=== PATIENT | female | born 1935 | race Caucasian/White ===

== ENCOUNTER 2019-10-05 15:32 | Outpatient (CLI) | payer MEDICARE, SELFPAY ==
--- NOTE | 2019-10-05 15:51 | XR_ITS ---
WS: [id number] LEFT WRIST: 3 VIEW(S) TECHNIQUE: PA, oblique and lateral. HISTORY: WRIST PAIN, LEFT, CELLULITIS LT WRIST COMPARISON: None available. No acute fracture or dislocation. Diffuse osteopenia. No joint space abnormality. No significant soft tissue edema. Vascular calcifications. XR/XR wrist LT min 3V* [id number] IMPRESSION: 1. Osteopenia, no fracture. 2. Peripheral arterial calcifications.
== END 2019-10-05 15:33 | disposition home or self-care (01) ==
LOC: RADWPI 15:36
PROVIDERS: Family Provider Internal Medicine; PCP Internal Medicine; Visit Provider Nurse Practitioner Family
DX: L03.114 Cellulitis of left upper limb (principal); M85.822 Other specified disorders of bone density and structure, left upper arm; I73.89 Other specified peripheral vascular diseases; M25.532 Pain in left wrist
CPT/HCPCS: 73110

== ENCOUNTER → 2020-03-14 09:23 | Outpatient (BNVA) | payer MEDICARE, SELFPAY | PROVIDERS: Family Provider Internal Medicine; PCP Internal Medicine; Referring Provider Internal Medicine; Visit Provider Dermatology | DX: L85.3 Xerosis cutis (principal); L30.8 Other specified dermatitis; D18.01 Hemangioma of skin and subcutaneous tissue; L82.1 Other seborrheic keratosis; B35.1 Tinea unguium; I87.2 Venous insufficiency (chronic) (peripheral) | CPT/HCPCS: 99203; 99204 ==

== ENCOUNTER 2020-03-22 13:20 | Outpatient (CLI) | payer MEDICARE, SELFPAY ==
--- NOTE | 2020-03-22 | XR_ITS ---
WS: [id number] RIGHT HIP HISTORY: RIGHT HIP PAIN COMPARISON: 10/03/2016 Right hip: No acute fracture or dislocation. Long intramedullary dianne with 2 femoral neck screws. No l ucency around the hardware or change in position. There may be slight retraction of the femoral neck screws as compared to the prior study from 2017 but I also suspect this could be positional. No fract ures. Extensive calcification in the femoral artery. XR/XR hip RT 2-3V wo/w pel* [id number] IMPRESSION: 1. No acute fracture. 2. Status post intramedullary rodding and screw fixation with no convincing in terval change.
== END 2020-03-22 13:21 | disposition home or self-care (01) ==
LOC: RADWPI 13:25
PROVIDERS: Family Provider Internal Medicine; PCP Internal Medicine; Visit Provider Internal Medicine
DX: M25.551 Pain in right hip (principal)
CPT/HCPCS: 73502

== ENCOUNTER 2020-06-13 23:46 | Emergency (ER) | payer MEDICARE, SELFPAY ==
[2020-06-13 23:50] VITALS: BP 201/84; PULSE 87; RESP 20; TEMP 36.6; O2SAT 96; BMI 30.5
--- NOTE | 2020-06-13 23:52 | XR_ITS ---
WS: [id number] Portable AP upright chest, 06/14/2020 Clinical Data: Chest pain Comparison: Portable chest, 07/28/2016. Findings: No nodules, masses or effusions are seen. The heart is slightly enlarged. The pulmonary vas cularity is not increased. No pneumonia or pneumothorax is seen. The aortic arch and descending aorta show calcification. There are monitor leads on the lower chest wall. XR/XR chest 1V portable [id number] Impression: Cardiomegaly and atherosclerosis.
--- NOTE | 2020-06-13 23:54 | ECG_ITS ---
[facility] Test Date: 2020-06-14 Pat Name: Mendy Gao Department: Room: Gender: Female Channel Lip Wetter: : 1935 Requested By: Carmel Alejandra Order Number: [id number] Riya MD: Osman Fernandez M.D. Measurements Intervals [place] Rate: 63 P: 79 FL: 236 QRS: -30 QRSD: 175 T: 110 QT: 464 QTc: 476 Interpretive Statements SINUS RHYTHM WITH FIRST DEGREE AV BLOCK LEFT BUNDLE BRANCH BLOCK [120+ ms QRS DURATION, 80+ ms Q/S IN V1/V2, 85+ ms R IN I/aVL/V5/V6] Compared to ECG 06/09/2016 10:12:09 First degree AV block now present Electronically Signed On 06-14-2020 20:12:23 CORE COMPOSER FEEDER by Osman Fernandez M.D. [email or web address]/store/[id number]
[2020-06-14] VITALS (11 sets, daily range): BP systolic 136–219; BP diastolic 43–89; PULSE 58–77; RESP 12–27; O2SAT 95–100
--- NOTE | 2020-06-14 00:09 | W.ED.GENADLT ---
HPI - General Adult General: Chief complaint: General Medical Stated complaint: HIGH BLOOD SUGAR Time Seen by Provider: 06/13/20 23:47 Source: patient and EMS Mode of arrival: EMS Limitations: no limitations History of Present Illness: HPI narrative: Ms. Gao is an 85-year-old female who comes in complaining of high blood sugar. Patient states her blood sugars been high for the past 2 to 3 days but today the last time she checked it was reading high so total amount was undetectable. Patient states she had urinary frequency and a dry mouth. She feels as though she is dehydrated from this. Patient states she is had a little bit of dyspepsia but no nausea or vomiting. She denies chest pain or shortness of breath. She came in tonight because the medicines they were giving her at the [place] [facility] were not able to get control of her blood sugar. She denies any fever, chills or respiratory complaints. She denies any lower abdominal pain, flank pain, headache, neck pain or other complaint. Associated symptoms: Deny chest pain, dyspnea, headache(s), nausea, rash, palpitations, syncope or vomiting Review of Systems Const: Denies: fever(s) Eyes: Denies: change in vision or blurry vision ENMT: Denies: throat pain, hoarseness or swelling of lips/tongue Card: Denies: chest pain, palpitations, syncope, pre-syncope or dyspnea on exertion Resp: Denies: dyspnea, productive cough, non-productive cough, wheezing, change in phlegm color or hemoptysis GI: Reports: abdominal pain; Denies: nausea, vomiting or diarrhea : Reports: urinary frequency; Denies: flank pain, dysuria or urinary urgency Musc: Denies: neck pain, back pain or extremity pain Skin/Breast: Denies: rash or pruritus Neuro: Denies: headache(s), numbness in extremities, weakness in extremities or dizziness Donald/Lymph: Denies: easy bruising, easy bleeding, petechiae or purpura All/Imm: Denies: urticaria or throat swelling PFSH ED PFSH: Medical History Asteototic dermatitis Cognitive disorder Diabetes mellitus type II, controlled Diverticulosis History of colon polyps Onychomycosis of toenail Peripheral sensory neuropathy due to type 2 diabetes mellitus Psychosocial impairment PVD (peripheral vascular disease) Trigeminal neuralgia Xerosis of skin Surgical History H/O breast surgery H/O hemorrhoidectomy H/O ovarian cystectomy H/O total thyroidectomy with left radical neck dissection H/O: hysterectomy History of back surgery History of bladder surgery Status post right foot surgery Family History Sister Lung disease Hypertension Diabetes Mother Diabetes Denies family history of CAD (coronary artery disease) Clotting disorder Dementia Hyperlipidemia Psychiatric illness Chronic kidney disease (CKD) Suicide Anesthesia complication Bleeding disorder Family history of premature coronary artery disease Cancer Stroke Social History Smoking and tobacco status: never smoked Alcohol intake: never Physical Exam Const: COMMON NORMALS: no acute distress, patient oriented x3, no limitations and alert GENERAL APPEARANCE: cooperative HENMT: COMMON NORMALS: normocephalic, atraumatic, external ears normal, EAC's normal and Normal external nose present HEAD & SCALP: normal to inspection, normocephalic and atraumatic FACE & SINUS: normal facial exam and face symmetric NOSE: Normal external nose present and Normal nares present EXTERNAL EAR: Yes external ears normal EXTERNAL AUDITORY CANAL: EAC's normal MOUTH: Normal oral and palatal mucosa present, lip normal and tongue normal Eye: COMMON NORMALS: Equal, round and reactive pupils present and conjunctivae normal GENERAL EYE: appearance normal, both eyes and all related structures ALIGNMENT: Yes alignment normal PERIORBITAL: periorbital findings normal EYELID: eyelids normal CONJUNCTIVA: Yes conjunctivae normal SCLERA: sclerae normal PUPIL: Yes Equal, round and reactive pupils present Neck/C-Spine: COMMON NORMALS: full ROM, no lymphadenopathy, supple, no meningeal signs and no JVD GENERAL: Yes normal visual inspection and Yes trachea midline Chest: COMMONS NORMALS: normal inspection of the chest and normal palpation of entire chest wall Resp: COMMON NORMALS: normal respiratory effort, No retractions, No use of accessory muscles and clear to auscultation bilaterally EFFORT & INSPECTION: Yes able to speak in complete sentences and Yes symmetric chest movement AUSCULTATION: clear to auscultation bilaterally, no crackles, no rales, no rhonchi and no wheezes Cardio: COMMON NORMALS: no JVD, regular rate, regular rhythm, S1 normal heart sound present and S2 normal heart sound present RATE: regular rate RHYTHM: regular rhythm HEART SOUNDS: S1 normal heart sound present, S2 normal heart sound present, no click, no gallops, no murmurs and no rubs GI: COMMON NORMALS: Soft to palpation and No hepatosplenomegaly present PALPATION: Yes Soft to palpation, No Tenderness to palpation present (GI), No Guarding due to palpation present (GI), No Rigid due to palpation, Yes No hepatosplenomegaly present, No Hernia present, No Palpable mass present and No Pulsatile mass present : COMMON NORMALS: Yes no CVA tenderness BLADDER/KIDNEY EXAM: Yes no CVA tenderness EXTERNAL FEMALE EXAM: No Hernia present Back/Pelvis: COMMON NORMALS: no CVA tenderness, thoracic and lumbar spine normal to inspection, no thoracic nor lumbar tenderness and thoraco-lumbar ROM normal Extremity: COMMON NORMALS: normal to inspection, full ROM, capillary refill normal, no joint enlargement, no clubbing, cyanosis or edema and no calf tenderness Neuro: COMMON NORMALS: patient oriented x3, CN's II-XII intact bilaterally, moves all extremities, no focal motor deficits and no sensory deficits noted SENSORIUM/ORIENTATION: Yes alert MENINGEAL SIGNS: Yes no meningeal signs SPEECH: speech normal Psych: COMMON NORMALS: mental status grossly normal, Normal thought process present, cooperative, normal affect, speech normal and activity/motor behavior normal SPEECH: Yes normal speech THOUGHT PROCESS: Normal thought process present Skin: COMMON NORMALS: no rashes or lesions noted, turgor normal, no jaundice, no petechiae and no mottling GENERAL SKIN EXAM: no rashes or lesions noted and turgor normal Course Vital Signs: Vital signs: Vital Signs Temperature 97.9 F 06/13/20 23:50 Pulse Rate 70 06/14/20 03:30 Respiratory Rate 23 H 06/14/20 03:30 Blood Pressure 143/76 06/14/20 03:30 Pulse Oximetry 96 06/14/20 03:30 MDM - General Adult MDM Narrative: Medical decision making narrative: 0315 - Mrs. Gao is a nice 85-year-old female who comes in with a 2 to 3-day history of polyuria, polydipsia and high blood sugar. Patient appears to be in a mild to moderate case of DKA. With 2 L normal saline here her blood sugar has dropped to the 500 range but we will go ahead and start an insulin drip to help close her anion gap. We have no ICU or floor beds available here so the case was reviewed with Dr. Lashay Dougherty at [facility] and she will accept the patient in transfer. Repeat exam does not reveal any signs of peritonitis. Patient has thrown up here but is feeling better after IV Zofran. Her EKG shows left bundle branch block that is stable. Patient does appear dehydrated but is overall feeling improved at this time. Lab Data: Attestation: I reviewed the patient's lab results. Labs: Lab Results 06/13/20 06/13/20 06/13/20 Range/Units 01:25 23:30 23:30 WBC 7.6 (4.0-10.0) 10^3/ uL RBC 3.89 L (4.1-5.3) 10^6/u L Hgb 10.9 L (11.5-15.3) g/dL Hct 36.6 L (37.0-47.0) % MCV 94.1 (81-99) fL MCH 28.0 (28.0-34.0) pg MCHC 29.8 L (30.0-36.0) g/dL RDW 13.7 (12.1-15.1) % Plt Count 249 (130-400) 10^3/c mm MPV 11.0 H (7.4-10.4) fL Neut % (Auto) 81.0 % Lymph % (Auto) 12.7 % Houghton % (Auto) 5.4 % Eos % (Auto) 0.1 % Baso % (Auto) 0.5 % Neut # (Auto) 6.19 (1.8-7.7) 10^3/u L Lymph # (Auto) 1.0 (0.8-4.8) 10^3/u L Houghton # (Auto) 0.4 (0.2-0.9) 10^3/u L Eos # (Auto) 0.0 (0.0-0.8) 10^3/u L Baso # (Auto) 0.0 (0.0-0.1) 10^3/u L Nucleated RBC % (a uto) 0 % Nucleated RBCs # 0.0 /100WBC Specimen Type Arterial Sample Site Radial, right ABG pH 7.22 L (7.35-7.45) ABG pCO2 37.8 (35-45) mmHg ABG pO2 83.7 (80.0-100.0) mmH g ABG HCO3 15.6 L (22-26) mmol/L ABG Base Excess -11.3 L (-2.0-2.0) mmol/ L Jm Test Pos Hematocrit 32.9 L (37-47) % Farrowing Worker ID ellpe Sodium 129 L (136-145) mmol/L Potassium 5.5 H (3.5-5.1) mmol/L Chloride 89 L (98-107) mmol/L Carbon Dioxide 19 L (22-29) mmol/L Anion Gap 26.5 H (5-19) BUN 26 H (8-23) mg/dL Creatinine 1.3 H (0.5-0.9) mg/dL GFR Calculation Not Reportable Glucose 833 H* (65-115) mg/dL POC Glucose (70-110) mg/dL Calculated Osmolal ity 314 H (285-295) mOsm/k g Calcium 9.7 (8.5-10.5) mg/dL Magnesium 2.0 (1.7-2.3) mg/dL Total Bilirubin 0.5 (0.15-1.2) mg/dL AST 67 H (0-32) U/L ALT 47 H (0-33) U/L Alkaline Phosphata se 168 H (35-105) IU/L Troponin T Baselin e (0-10) ng/L Total Protein 6.6 (6.6-8.7) g/dL Albumin 4.6 (3.5-5.2) g/dL Globulin 2.0 (1.3-4.6) g/dL Lipase 17 (13-60) U/L Urine Color (Yellow) Urine Appearance (CLEAR) Urine pH (5-7) Ur Specific Gravit y (1.005-1.030) Urine Protein (Negative) Urine Glucose (UA) (Normal) Urine Ketones (Negative) Urine Blood (Negative) Urine Nitrate (Negative) Urine Bilirubin (Negative) Urine Urobilinogen (Negative) mg/dL Ur Leukocyte Roopa ase (Negative) Serum Ketones Positive H (Negative) SARS-CoV-2 Ag (Rap id) (Negative) 11/02/20 11/03/20 11/03/20 Range/Units 23:30 00:05 02:53 WBC (4.0-10.0) 10^3/ uL RBC (4.1-5.3) 10^6/u L Hgb (11.5-15.3) g/dL Hct (37.0-47.0) % MCV (81-99) fL MCH (28.0-34.0) pg MCHC (30.0-36.0) g/dL RDW (12.1-15.1) % Plt Count (130-400) 10^3/c mm MPV (7.4-10.4) fL Neut % (Auto) % Lymph % (Auto) % Houghton % (Auto) % Eos % (Auto) % Baso % (Auto) % Neut # (Auto) (1.8-7.7) 10^3/u L Lymph # (Auto) (0.8-4.8) 10^3/u L Houghton # (Auto) (0.2-0.9) 10^3/u L Eos # (Auto) (0.0-0.8) 10^3/u L Baso # (Auto) (0.0-0.1) 10^3/u L Nucleated RBC % (a uto) % Nucleated RBCs # /100WBC Specimen Type Sample Site ABG pH (7.35-7.45) ABG pCO2 (35-45) mmHg ABG pO2 (80.0-100.0) mmH g ABG HCO3 (22-26) mmol/L ABG Base Excess (-2.0-2.0) mmol/ L Jm Test Hematocrit (37-47) % Farrowing Worker ID Sodium (136-145) mmol/L Potassium (3.5-5.1) mmol/L Chloride (98-107) mmol/L Carbon Dioxide (22-29) mmol/L Anion Gap (5-19) BUN (8-23) mg/dL Creatinine (0.5-0.9) mg/dL GFR Calculation Glucose (65-115) mg/dL POC Glucose 562 (70-110) mg/dL Calculated Osmolal ity (285-295) mOsm/k g Calcium (8.5-10.5) mg/dL Magnesium (1.7-2.3) mg/dL Total Bilirubin (0.15-1.2) mg/dL AST (0-32) U/L ALT (0-33) U/L Alkaline Phosphata se (35-105) IU/L Troponin T Baselin e 30 H (0-10) ng/L Total Protein (6.6-8.7) g/dL Albumin (3.5-5.2) g/dL Globulin (1.3-4.6) g/dL Lipase (13-60) U/L Urine Color Yellow (Yellow) Urine Appearance Clear (CLEAR) Urine pH 5.0 (5-7) Ur Specific Gravit y 1.010 (1.005-1.030) Urine Protein Neg (Negative) Urine Glucose (UA) 4+ H (Normal) Urine Ketones 2+ H (Negative) Urine Blood Neg (Negative) Urine Nitrate Negative (Negative) Urine Bilirubin Neg (Negative) Urine Urobilinogen Norm (Negative) mg/dL Ur Leukocyte Roopa ase Negative (Negative) Serum Ketones (Negative) SARS-CoV-2 Ag (Rap id) (Negative) 06/14/20 06/14/20 Range/Units 03:18 03:41 WBC (4.0-10.0) 10^3/ uL RBC (4.1-5.3) 10^6/u L Hgb (11.5-15.3) g/dL Hct (37.0-47.0) % MCV (81-99) fL MCH (28.0-34.0) pg MCHC (30.0-36.0) g/dL RDW (12.1-15.1) % Plt Count (130-400) 10^3/c mm MPV (7.4-10.4) fL Neut % (Auto) % Lymph % (Auto) % Houghton % (Auto) % Eos % (Auto) % Baso % (Auto) % Neut # (Auto) (1.8-7.7) 10^3/u L Lymph # (Auto) (0.8-4.8) 10^3/u L Houghton # (Auto) (0.2-0.9) 10^3/u L Eos # (Auto) (0.0-0.8) 10^3/u L Baso # (Auto) (0.0-0.1) 10^3/u L Nucleated RBC % (a uto) % Nucleated RBCs # /100WBC Specimen Type Sample Site ABG pH (7.35-7.45) ABG pCO2 (35-45) mmHg ABG pO2 (80.0-100.0) mmH g ABG HCO3 (22-26) mmol/L ABG Base Excess (-2.0-2.0) mmol/ L Jm Test Hematocrit (37-47) % Farrowing Worker ID Sodium (136-145) mmol/L Potassium (3.5-5.1) mmol/L Chloride (98-107) mmol/L Carbon Dioxide (22-29) mmol/L Anion Gap (5-19) BUN (8-23) mg/dL Creatinine (0.5-0.9) mg/dL GFR Calculation Glucose (65-115) mg/dL POC Glucose > 600 (70-110) mg/dL Calculated Osmolal ity (285-295) mOsm/k g Calcium (8.5-10.5) mg/dL Magnesium (1.7-2.3) mg/dL Total Bilirubin (0.15-1.2) mg/dL AST (0-32) U/L ALT (0-33) U/L Alkaline Phosphata se (35-105) IU/L Troponin T Baselin e (0-10) ng/L Total Protein (6.6-8.7) g/dL Albumin (3.5-5.2) g/dL Globulin (1.3-4.6) g/dL Lipase (13-60) U/L Urine Color (Yellow) Urine Appearance (CLEAR) Urine pH (5-7) Ur Specific Gravit y (1.005-1.030) Urine Protein (Negative) Urine Glucose (UA) (Normal) Urine Ketones (Negative) Urine Blood (Negative) Urine Nitrate (Negative) Urine Bilirubin (Negative) Urine Urobilinogen (Negative) mg/dL Ur Leukocyte Roopa ase (Negative) Serum Ketones (Negative) SARS-CoV-2 Ag (Rap id) Negative (Negative) Imaging Data^: US: My impression: Ultrasound gallbladder, tech interpretation -no acute findings. Normal gallbladder. EKG Data^: EKG 1: Attestation: I personally reviewed and interpreted this EKG as follows: EKG interpretation date: 06/14/20 EKG interpretation time: 00:33 Interpretation: Normal sinus rhythm with first-degree AV block, prolonged QTC, left bundle branch block. EKG 2: Attestation: I personally reviewed and interpreted this EKG as follows: EKG interpretation date: 06/14/20 EKG interpretation time: 04:07 Interpretation: Normal sinus rhythm at 61 beats a minute, first-degree AV block, left bundle branch block. No acute ST-T wave changes. Discharge Plan Discharge Patient Disposition: Xfer Short-Term Hosp Clinical Impression: Diabetic ketoacidosis Qualifiers: Diabetes mellitus type: type 2 Diabetes mellitus complication detail: without coma Qualified Code(s): E11.10 - Type 2 diabetes mellitus with ketoacidosis without coma Condition: Stable Referrals: Jacki Valle MD [Primary Care Provider] - Coding Level of Care Code ED Home Worker for Chg Fwd Exam Comprehensive
[2020-06-14 00:19] LABS: Basophils % 0.5 %; Eosinophils % 0.1 %; Hematocrit 36.6 % (37.0-47.0); Hemoglobin 10.9 g/dL (11.5-15.3); Lymphocytes % 12.7 %; Mean Corpuscular HGB Conc 29.8 g/dL (30.0-36.0); Mean Corpuscular Volume 94.1 fL (81-99); Monocytes # 0.4 10^3/uL (0.2-0.9); Monocytes % 5.4 %; Neutrophils # 6.19 10^3/uL (1.8-7.7); Nucleated Red Blood Cells % 0 %; Platelet Count 249 10^3/cmm (130-400); Red Blood Count 3.89 10^6/uL (4.1-5.3); Red Cell Distribution Width 13.7 % (12.1-15.1); White Blood Count 7.6 10^3/uL (4.0-10.0)
[2020-06-14 00:19] LABS: Add Urine Microscopic? NO
[2020-06-14] MEDS: ondansetron 2 mg/ML SDV 2 mL 4 MG IVP ×2 (00:23→03:55)
[2020-06-14] MEDS: sodium chloride 0.9% 1,000 ML 999 ML IV ×2 (00:25→01:30)
[2020-06-14] MEDS: labetalol 5 mg/mL SDV 20mL 10 MG IVP (00:25)
[2020-06-14 00:42] LABS: Ketone (Acetest) Serum Positive (Negative)
[2020-06-14 00:43] LABS: Alanine Aminotransferase 47 U/L (0-33); Albumin Level 4.6 g/dL (3.5-5.2); Alkaline Phosphatase 168 IU/L (35-105); Anion Gap 26.5 (5-19); Aspartate Amino Transferase 67 U/L (0-32); Blood Urea Nitrogen 26 mg/dL (8-23); Calcium 9.7 mg/dL (8.5-10.5); Carbon Dioxide 19 mmol/L (22-29); Chloride 89 mmol/L (98-107); Lipase 17 U/L (13-60); Potassium 5.5 mmol/L (3.5-5.1); Sodium 129 mmol/L (136-145); Total Bilirubin 0.5 mg/dL (0.15-1.2); Total Protein 6.6 g/dL (6.6-8.7)
[2020-06-14 00:45] LABS: Troponin(5th) Baseline 30 ng/L (0-10)
[2020-06-14 00:53] LABS: Osmolality Calculated 314 mOsm/kg (285-295)
[2020-06-14 00:58] LABS: Glucose Urine UA 4+ (Normal); Protein Urine Neg (Negative); Urine Appearance Clear (CLEAR); Urine Color Yellow (Yellow)
[2020-06-14 00:59] LABS: Bilirubin Urine Neg (Negative); Blood Urine Neg (Negative); Ketones Urine 2+ (Negative); Leukocyte Esterase Urine Negative (Negative); Nitrate Urine Negative (Negative); Urobilinogen Urine Norm (Negative)
[2020-06-14 01:07] LABS: Glucose 833 mg/dL (65-115)
--- NOTE | 2020-06-14 01:12 | US_ITS ---
WS: [id number] ULTRASOUND ABDOMEN LIMITED CLINICAL INFORMATION: Pain COMPARISON: None. FINDINGS: Liver Size: Normal. Craniocaudal length: 14.2 cm. Echogenicity: Normal. Surface nodularity: None. Mass (size and location): None. Bile ducts Intrahepatic ducts: Normal. Common bile duct diameter: 0.5 cm. Gallbladder Normal. Gallstones: None. Gallbladder sludge: None. Gallbladder wall thickening: None. Pericholecystic fluid: None. Sonographic Breen sign: Absent. Pancreas Normal as visualized. Right kidney: Normal. Hydronephrosis: None. Size: 10.2 cm x 4.1 cm x 4.8 cm. Abdominal aorta and IVC Visualized portions are normal. Ascites: None. US/US gall bladder [id number] IMPRESSION: Normal abdominal ultrasound
[2020-06-14 01:34] LABS: ABG PCO2 37.8 mmHg (35-45); ABG PH Result 7.22 (7.35-7.45); Arterial Blood Gas Hematocrit 32.9 % (37-47); Base Excess ABG -11.3 mmol/L (-2.0-2.0); Blood Gas Allen Test Pos; Blood Gas Sample Site Radial, right; Blood Gas Sample Type Arterial; HCO3 ABG 15.6 mmol/L (22-26); PO2 ABG 83.7 mmHg (80.0-100.0)
--- NOTE | 2020-06-14 01:54 | ECG_ITS ---
[facility] Test Date: 2020-06-14 Pat Name: Mendy Gao Department: Room: Gender: Female Pellet Machine Operator: : 1935 Requested By: Carmel Alejandra Order Number: [id number] Riya MD: Osman Fernandez M.D. Measurements Intervals [place] Rate: 61 P: 70 AL: 228 QRS: -29 QRSD: 178 T: 130 QT: 456 QTc: 462 Interpretive Statements SINUS RHYTHM WITH FIRST DEGREE AV BLOCK LEFT BUNDLE BRANCH BLOCK [120+ ms QRS DURATION, 80+ ms Q/S IN V1/V2, 85+ ms R IN I/aVL/V5/V6] Compared to ECG 06/14/2020 00:33:16 No significant changes Electronically Signed On 06-14-2020 20:23:00 ORACLE ANALYST by Osman Fernandez M.D. [email or web address]/store/[id number] f
[2020-06-14 02:59] LABS: Glucose Point of Care 562 mg/dL (70-110)
[2020-06-14] MEDS: insulin regular-human 250 UNIT in sodium chloride 0.9% 250 ML IV (02:59)
[2020-06-14 03:46] LABS: Glucose Point of Care > 600 mg/dL (70-110)
[2020-06-14] MEDS: sodium chloride 0.9% 1,000 ML 150 ML IV (03:59)
[2020-06-14 04:06] LABS: SARS Covid-2 Antigen Negative (Negative)
--- NOTE | 2020-06-14 04:09 | PC.NURSE ---
Pt report called to Jannette Gama RN. She requested we call them once the pt leaves.
[2020-06-14 04:14] LABS: Glucose Point of Care 514 mg/dL (70-110)
[2020-06-14 04:39] LABS: Troponin 5 2HR 26.75 ng/L (0-10)
[2020-06-14 05:12] LABS: Glucose Point of Care 443 mg/dL (70-110)
[2020-06-14 06:03] LABS: Lactic Sepsis W/Reflex 2.1 mmol/L (0.5-2.2)
[2020-06-14 06:04] LABS: Reflex Lactate Order REFLEX LACTIC ORDERD
[2020-06-14 06:15] LABS: Glucose Point of Care 352 mg/dL (70-110)
== END 2020-06-14 07:21 | disposition short-term general hospital (02) ==
PROVIDERS: Emergency Provider Emergency Medicine; PCP Internal Medicine
DX: E11.10 Type 2 diabetes mellitus with ketoacidosis without coma (principal); E11.42 Type 2 diabetes mellitus with diabetic polyneuropathy
CPT/HCPCS: 12345; 36416; 36600; 51702; 71045; 76705; 80053; 81003; 82009; 82803; 82962; 83605; 83690; 83735; 84484; 85025; 87426; 93005; 96365; 96366; 96375; 99284; 99285; J1815; J2405; J3490; J7030; J7050